=== PATIENT | female | born 1945 | race Caucasian/White ===

== ENCOUNTER → 2016-07-29 | Outpatient (CLI) | payer OTHER ==
[2015-01-06 18:18] VITALS: BP 154/83
--- NOTE | 2016-07-29 11:31 | MG ---
HISTORY: SCREENING Comparison: 07/26/2015, 06/20/2014 FINDINGS: Bilateral CC and MLO projections of the right and left breast were obtained. Scattered fibroglandul ar tissue is seen to be present. No significant architectural distortion, mass or clustered microca lcifications can be observed to suggest malignancy. No skin thickening or nipple retraction is appr eciated. No pathological lymphadenopathy can be identified. Stable benign calcifications are seen in both breasts. IMPRESSION: NO RADIOGRAPHIC EVIDENCE OF MALIGNANCY. ACR CATEGORY I - NEGATIVE EXAM. FOLLOW-UP EXAM 1 YEAR. Diagnostic CAD was utilized and reviewed. * 0 (ZERO) - ASSESSMENT INCOMPLETE; ADDITIONAL IMAGING IS NEEDED. * / (ONE) - NEGATIVE. * 2/II (TWO) - BENIGN FINDINGS. * 3/III (THREE) - PROBABLY BENIGN FINDING; SHORT INTERVAL FOLLOW-UP SUGGESTED. * 4/IV (FOUR) - SUSPICIOUS ABNORMALITY; BIOPSY SHOULD BE CONSIDERED. * 5/V - HIGHLY SUSPICIOUS OF MALIGNANCY; BIOPSY SHOULD BE PERFORMED. A NEGATIVE X-RAY REPORT SHOULD NOT DELAY BIOPSY IF A DOMINANT OR CLINICALLY SUSPICIOUS MASS IS PRESENT; 4 TO 8 PERCENT OF CANCERS ARE NOT IDENTIFIED BY X-RAY. A NEG ATIVE REPORT MAY REINFORCE THE CLINICAL IMPRESSION. ADENOSIS AND DENSE BREASTS MAY OBSCURE AN UNDER LYING NEOPLASM. Reported By:
== END ==
LOC: RAD 09:34
PROVIDERS: ATTEND Specialist
DX: Z12.31 Encounter for screening mammogram for malignant neoplasm of breast (principal)
CPT/HCPCS: 77067

== ENCOUNTER → 2016-11-22 | Outpatient (CLI) | payer SELFPAY ==
[2015-01-06 18:18] VITALS: BP 154/83
--- NOTE | 2016-11-22 10:07 | CT ---
CORONARY CALCIUM SCORE CLINICAL INDICATION: Family history of high cholesterol COMPARISON: None PROCEDURE: Gated images of the coronary arteries. Coronary artery calcium scoring was performed. FINDINGS: Coronary calcium scoring - 67 LM: 18 LAD: 30 LCX: 4 RCA: 15 IMPRESSION: 1. Calcium score of 67. This places the patient at approximately the 50th-75th percentile for females of equivalent age. Definite, at least mild atherosclerotic plaque. Mild or minimal coronary narrowi ngs are likely. Reported By:
== END ==
LOC: RAD 08:30
PROVIDERS: ATTEND Internal Medicine
DX: Z13.6 Encounter for screening for cardiovascular disorders (principal)